=== PATIENT | male | born 1985 | race Caucasian/White ===

== ENCOUNTER 2020-09-10 17:54 | Emergency (ER) | payer MEDICAID ==
[~2020-09-10] VITALS: Ht 182.9 cm; Wt 93.5 kg
[~2020-09-10 17:54] MED LIST: CLOT15CR35 TOP; HYDR-4383 PO; NO HOME MEDS
[2020-09-10 18:07] VITALS: BP 147/87
--- NOTE | 2020-09-10 19:28 | NUR ---
Patient declines velcro splint.
== END 2020-09-10 19:46 | disposition home or self-care (01) ==
LOC: ER 17:54
DX: M79.642 Pain in left hand (principal); Z87.19 Personal history of other diseases of the digestive system; F17.200 Nicotine dependence, unspecified, uncomplicated; Z56.0 Unemployment, unspecified; X50.9XXA Other and unspecified overexertion or strenuous movements or postures, initial encounter; Y93.89 Activity, other specified; Y92.89 Other specified places as the place of occurrence of the external cause; Y99.8 Other external cause status
CPT/HCPCS: 29125; 73130; 99283

== ENCOUNTER 2021-09-30 21:16 | Emergency (ER) | payer MEDICAID ==
[~2021-09-30] VITALS: Ht 182.9 cm; Wt 81.0 kg
--- NOTE | 2021-09-30 21:50 | NUR ---
Placed in room 15. Pt states that he hears voices telling him to hurt himself and others. No specific plan. Also, see trails. Agreed to not harm himself while in our care.
--- NOTE | 2021-09-30 21:55 | NUR ---
Pt stated that he attempted to hang himself 3 months ago.
[2021-09-30 22:19] LABS: BASOPHILS # (AUTO) 0.1 X10'3 (0-0.2); BASOPHILS % (AUTO) 0.6 % (0-1); EOSINOPHILS # (AUTO) 0.1 X10'3 (0-0.9); EOSINOPHILS % (AUTO) 1.2 % (0-6); HEMATOCRIT 37.5 % (42.0-52.0); HEMOGLOBIN 13.3 g/dl (14.0-17.9); LYMPHOCYTES # (AUTO) 1.8 X10'3 (1.1-4.8); LYMPHOCYTES % (AUTO) 19.2 % (21-51); MEAN CORPUSCULAR HEMOGLOBIN 30.5 PG (27.0-31.0); MEAN CORPUSCULAR HGB CONC 35.4 g/dL (33.0-36.5); MEAN CORPUSCULAR VOLUME 86.1 FL (78-98); MONOCYTES # (AUTO) 0.6 X10'3 (0-0.9); MONOCYTES % (AUTO) 6.5 % (2-12); NEUTROPHILS # (AUTO) 6.8 X10'3 (1.8-7.7); NEUTROPHILS % (AUTO) 72.5 % (42-75); PLATELET COUNT 360 X10'3 (140-440); RED BLOOD COUNT 4.36 X10'6 (4.70-6.10); RED CELL DISTRIBUTION WIDTH 13.2 % (11.5-14.5); WHITE BLOOD COUNT 9.4 X10'3 (4.5-11.0)
[2021-09-30 22:39] LABS: ALBUMIN/GLOBULIN RATIO 0.9 (1.1-1.5); ANION GAP 10 (8-16); BILIRUBIN,TOTAL 0.4 MG/DL (0.1-1.0); BLOOD UREA NITROGEN 18 MG/DL (7-18); BUN/CREATININE RATIO 23.7 (5.4-32.0); CALCIUM 9.1 MG/DL (8.5-10.1); CHLORIDE 98 MMOL/L (99-107); CREATININE 0.76 MG/DL (0.60-1.10); GLUCOSE 96 MG/DL (70-104); POTASSIUM 4.1 MMOL/L (3.5-5.1); SODIUM 135 MMOL/L (135-145); TOTAL CARBON DIOXIDE 27.1 MMOL/L (24-32); TOTAL PROTEIN 8.7 G/DL (6.4-8.2); eGFR > 90 ML/MIN
[2021-09-30 22:40] LABS: ALANINE AMINOTRANSFERASE 16 U/L (12-78); ALKALINE PHOSPHATASE 80 IU/L (46-116); ASPARTATE AMINO TRANSFERASE 29 U/L (10-37)
[2021-09-30 22:41] LABS: ETHANOL < 0.010 GM/DL (0.0-0.010)
--- NOTE | 2021-10-01 00:56 | NUR ---
PT RESTING IN BED, APPREARS TO BE SLEEPING, EVEN AND UNLABORED RESPIRATIONS. PT IN NO SIGN OF DISTRESS WITH ROOM SECURED FOR SAFETY
--- NOTE | 2021-10-01 03:45 | NUR ---
PT RESTING ON RIGHT SIDE IN STABLE CONDITION, EVEN RISE AND FALL OF CHEST, APPEARS TO BE SLEEPING
--- NOTE | 2021-10-01 06:47 | NUR ---
pt appears to be resting peacefully. no s/s acute distress. respirations equal and unlabored
[2021-10-01 10:05] LABS: CLARITY,URINE CLEAR (Clear); COLOR,URINE YELLOW (Yellow); GLUCOSE, URINE NEGATIVE (Neg); KETONES,URINE NEGATIVE (Neg); LEUKOCYTE ESTERASE ,URINE NEGATIVE (Neg); NITRITES, URINE NEGATIVE (Neg); OCCULT BLOOD,URINE NEGATIVE (Neg); PH,URINE 7.5 (4.8-8.0); PROTEIN,URINE NEGATIVE (Neg)
[2021-10-01 10:10] LABS: UA COLLECTION TYPE URINAL
[2021-10-01 10:14] LABS: URINE AMPHETAMINE SCREEN POSITIVE (Neg); URINE BARBITUATE SCREEN NEGATIVE (Neg); URINE BENZODIAZEPINES SCREEN NEGATIVE (Neg); URINE CANNABINOID SCREEN POSITIVE (Neg); URINE COCAINE SCREEN NEGATIVE (Neg); URINE METHADONE SCREEN NEGATIVE (Neg); URINE OPIATE SCREEN POSITIVE (Neg); URINE PHENCYCLIDINE SCREEN NEGATIVE (Neg)
--- NOTE | 2021-10-01 12:24 | NUR ---
PT BROUGHT BACK TO ROOM 22. PT ORIENTATED TO ENVIRONMENT AND LUNCH TRAY PROVIDED.
[2021-10-01] MEDS ORDERED: LORazepam 1 MG tablet PO ONE (12:35)
--- NOTE | 2021-10-01 15:30 | NUR ---
Pt being seen by [facility] worker
[2021-10-01] MEDS ORDERED: diphenhydrAMINE 25mg capsule PO PRN (16:55)
[2021-10-01] MEDS ORDERED: ibuprofen tablet 400 MG TABLET PO PRN (16:55)
--- NOTE | 2021-10-01 19:19 | NUR ---
One to one with the patient and discussed the plan of care. He is not on a mental health hold. He is focused on receiving medications and is asking for suboxone and seroquel.
--- NOTE | 2021-10-01 19:35 | NUR ---
THe patient is requesting seroquel and MD made aware and orders received.
[2021-10-01] MEDS ORDERED: quetiapine 100mg tablet PO ONE (19:40)
--- NOTE | 2021-10-01 20:41 | NUR ---
The patient appears to be sleeping.
--- NOTE | 2021-10-01 22:21 | NUR ---
The patient appears to be sleeping
--- NOTE | 2021-10-02 00:36 | NUR ---
The patient is up to use the bathroom
--- NOTE | 2021-10-02 02:35 | NUR ---
The patient appears to be sleeping
--- NOTE | 2021-10-02 04:20 | NUR ---
The patient appears to be sleeping
--- NOTE | 2021-10-02 05:06 | NUR ---
Client resting on left side. Resp even and unlabored.
[2021-10-02 05:39] VITALS: BP 144/98
--- NOTE | 2021-10-02 06:51 | NUR ---
Patient sleeping on right side. No distress observed. Continue to monitor.
--- NOTE | 2021-10-02 08:20 | NUR ---
Patient eating breakfast. No distress observed. Continue to monitor.
--- NOTE | 2021-10-02 08:43 | NUR ---
Met with patient in regards to substance use and to see if patient wanted resources for treatment options. Patient would like to go to an inpatient rehab facility. I gave patient [facility] number to call and start process. I also gave patient my card to call me if he needs any help.
== END 2021-10-02 10:05 | disposition home or self-care (01) ==
LOC: ER 21:35
DX: R45.851 Suicidal ideations (principal); Z20.822 Contact with and (suspected) exposure to COVID-19; F11.90 Opioid use, unspecified, uncomplicated
CPT/HCPCS: 36415; 80053; 80305; 80320; 81003; 85025; 87635; 99284; C9803; Q0163

== ENCOUNTER 2023-05-25 12:13 | Emergency (ER) | payer MEDICAID ==
[~2023-05-25] VITALS: Ht 182.9 cm; Wt 69.6 kg
[2023-05-25 12:29] VITALS: TEMP 97.9
[2023-05-25] MEDS ORDERED: ondansetron/PF 4mg/2ml inj IV ONE (13:05)
[2023-05-25] MEDS ORDERED: normal saline 1000ML IV soln IVB ONE (13:05)
--- NOTE | 2023-05-25 13:07 | NUR ---
Patient is concerned he may have been exposed to syphillis 8-9 months ago. Pt. would like to be tested.
[2023-05-25 13:23] LABS: BASOPHILS % (AUTO) 0.2 % (0-1); EOSINOPHILS % (AUTO) 0.4 % (0-6); HEMATOCRIT 35.1 % (42.0-52.0); HEMOGLOBIN 12.3 g/dl (14.0-17.9); LYMPHOCYTES # (AUTO) 1.9 X10'3 (1.1-4.8); MEAN CORPUSCULAR HEMOGLOBIN 31.3 PG (27.0-31.0); MEAN CORPUSCULAR HGB CONC 35.1 g/dL (33.0-36.5); MEAN CORPUSCULAR VOLUME 89.3 FL (78-98); MEAN PLATELET VOLUME 8.3 FL (7.4-10.4); MONOCYTES # (AUTO) 1.2 X10'3 (0-0.9); NEUTROPHILS # (AUTO) 6.2 X10'3 (1.8-7.7); NEUTROPHILS % (AUTO) 66.4 % (42-75); PLATELET COUNT 451 X10'3 (140-440); RED BLOOD COUNT 3.92 X10'6 (4.70-6.10); RED CELL DISTRIBUTION WIDTH 13.9 % (11.5-14.5); WHITE BLOOD COUNT 9.3 X10'3 (4.5-11.0)
[2023-05-25 13:38] LABS: ALANINE AMINOTRANSFERASE 28 U/L (12-78); ALBUMIN 4.2 G/DL (3.4-5.0); ALBUMIN/GLOBULIN RATIO 0.8 (1.1-1.5); ALKALINE PHOSPHATASE 96 IU/L (46-116); ANION GAP 12 (8-16); ASPARTATE AMINO TRANSFERASE 19 U/L (10-37); BILIRUBIN,TOTAL 0.4 MG/DL (0.1-1.0); BLOOD UREA NITROGEN 27 MG/DL (7-18); BUN/CREATININE RATIO 17.2 (10.0-20.0); CALCIUM 10.1 MG/DL (8.5-10.1); CHLORIDE 94 MMOL/L (99-107); CREATININE 1.57 MG/DL (0.60-1.10); GLUCOSE 151 MG/DL (70-104); LIPASE < 50 U/L (73-393); POTASSIUM 3.9 MMOL/L (3.5-5.1); SODIUM 129 MMOL/L (135-145); TOTAL CARBON DIOXIDE 23.2 MMOL/L (24-32); TOTAL PROTEIN 9.2 G/DL (6.4-8.2); eCRCL 63 ML/MIN; eGFR 50 ML/MIN
[2023-05-25] MEDS ORDERED: normal saline 1000ml 1,000 ML IV ONE (14:00)
[2023-05-25] MEDS ORDERED: ketorolac trometh. 30mg/ml inj. IV ONE (14:05)
[2023-05-25 15:57] LABS: BILIRUBIN,URINE SMALL (Neg); CLARITY,URINE SLIGHTLY CLOUDY (Clear); COLOR,URINE AMBER (Yellow); GLUCOSE, URINE NEGATIVE (Neg); KETONES,URINE TRACE mg/dl (Neg); LEUKOCYTE ESTERASE ,URINE NEGATIVE (Neg); NITRITES, URINE NEGATIVE (Neg); OCCULT BLOOD,URINE NEGATIVE (Neg); PH,URINE 5.5 (4.8-8.0); PROTEIN,URINE 30 mg/dl (Neg)
[2023-05-25 16:00] LABS: UA COLLECTION TYPE CLN CATCH MIDSTREAM
[2023-05-25 16:04] LABS: BACTERIA,URINE FEW /HPF (Neg); RBC,URINE 0-2 /HPF (0-2); WBC,URINE 0-4 /HPF (0-4)
[2023-05-25 16:05] LABS: COARSE GRANULAR CAST 0-3 /LPF (NEGATIVE); FINE GRANULAR CAST 0-3 /LPF (NEGATIVE); HYALINE CASTS >30 /LPF (NEGATIVE); MUCUS STRANDS MANY /LPF (Neg); SQUAMOUS EPITHELIAL CELL,UR FEW /LPF (FEW)
[2023-05-25 16:35] LABS: ALBUMIN 3.3 G/DL (3.4-5.0); ANION GAP 6 (8-16); BLOOD UREA NITROGEN 24 MG/DL (7-18); BUN/CREATININE RATIO 22.6 (10.0-20.0); CALCIUM 8.5 MG/DL (8.5-10.1); CHLORIDE 100 MMOL/L (99-107); CREATININE 1.06 MG/DL (0.60-1.10); GLUCOSE 113 MG/DL (70-104); POTASSIUM 4.3 MMOL/L (3.5-5.1); SODIUM 131 MMOL/L (135-145); eCRCL 93 ML/MIN; eGFR 78 ML/MIN
[2023-05-25] MEDS ORDERED: ONDA4TAB12 PO (16:59)
[2023-05-25 17:25] VITALS: BP 141/89; PULSE 93; RESP 17; O2SAT 98
--- NOTE | 2023-05-25 17:37 | NUR ---
PT PREPARING FOR DISCHARGE. RN WAS REMOVING IV THE PT STARTED SAYING THAT HE DID NOT WANT TO BE DISCHARGED D/T HE WANTED MORE TESTING DONE. RN OFFERED PT THAT SHE WOULD NOTIFY [facility] AND PT STATED "HE DOESNT CARE, IM JUST GOING TO LEAVE" PT SIGNED PAPERWORK AND THEN REQUESTED THE RN GET A DR NOTE SO HE CAN BE P[facility]. RN WILL NOTIFY [facility] AND ATTEMPT TO GET NOTE P/T PT DISCHARGE.
--- NOTE | 2023-05-25 17:45 | NUR ---
DR PENALOZA PROVIDED A NOTE FOR PT STATING THAT HE WAS SEEN AND WHAT HIS SX WERE SO THAT HE MAY PROVIDE IT TO [facility].
== END 2023-05-25 17:47 | disposition home or self-care (01) ==
LOC: ER 12:13
DX: R10.9 Unspecified abdominal pain (principal); R11.2 Nausea with vomiting, unspecified; Z79.899 Other long term (current) drug therapy
CPT/HCPCS: 36415; 80048; 80053; 81001; 83605; 83690; 84145; 85025; 96361; 96374; 96375; 99285; J1885; J2405; J7030

== ENCOUNTER 2024-04-26 19:56 | Emergency (ER) | payer MEDICAID, OTHER ==
[~2024-04-26] VITALS: Ht 182.9 cm; Wt 81.8 kg
[~2024-04-26 19:56] MED LIST changes: +ONDA-243 PO
[2024-04-26 19:57] VITALS: TEMP 98.3
[2024-04-26 22:48] LABS: BASOPHILS % (AUTO) 0.3 % (0-1); EOSINOPHILS % (AUTO) 0.2 % (0-6); HEMATOCRIT 35.2 % (42.0-52.0); LYMPHOCYTES % (AUTO) 22.6 % (21-51); MEAN CORPUSCULAR HEMOGLOBIN 30.3 PG (27.0-31.0); MEAN PLATELET VOLUME 7.9 FL (7.4-10.4); MONOCYTES # (AUTO) 0.6 X10'3 (0-0.9); MONOCYTES % (AUTO) 6.4 % (2-12); NEUTROPHILS # (AUTO) 6.2 X10'3 (1.8-7.7); NEUTROPHILS % (AUTO) 70.5 % (42-75); PLATELET COUNT 286 X10'3 (140-440); RED BLOOD COUNT 3.95 X10'6 (4.70-6.10); RED CELL DISTRIBUTION WIDTH 14.1 % (11.5-14.5); WHITE BLOOD COUNT 8.7 X10'3 (4.5-11.0)
[2024-04-26 23:08] LABS: ALBUMIN 3.9 G/DL (3.4-5.0); ANION GAP 11 (8-16); BLOOD UREA NITROGEN 12 MG/DL (7-18); BUN/CREATININE RATIO 11.4 (10.0-20.0); CALCIUM 8.9 MG/DL (8.5-10.1); CHLORIDE 104 MMOL/L (99-107); CREATININE 1.05 MG/DL (0.60-1.10); ETHANOL < 10 MG/DL (<10); GLUCOSE 99 MG/DL (70-104); POTASSIUM 3.6 MMOL/L (3.5-5.1); SODIUM 140 MMOL/L (135-145); TOTAL CARBON DIOXIDE 25.4 MMOL/L (24-32); eCRCL 104 ML/MIN; eGFR 79 ML/MIN
[2024-04-27 05:32] VITALS: BP 125/90; PULSE 84; RESP 12; O2SAT 99
== END 2024-04-27 05:22 | disposition home or self-care (01) ==
LOC: ER 19:56
DX: T88.7XXA Unspecified adverse effect of drug or medicament, initial encounter (principal); T43.655A Adverse effect of methamphetamines, initial encounter; Z79.2 Long term (current) use of antibiotics; Y92.89 Other specified places as the place of occurrence of the external cause
CPT/HCPCS: 36415; 80048; 80320; 84443; 85025; 99285